=== PATIENT | female | born 1950 | race Caucasian/White ===

== ENCOUNTER 2018-03-02 06:16 | Day surgery (SDC) | payer OTHER ==
[2018-02-24 09:19] LABS: Urine Appearance CLEAR; Urine Bilirubin NEGATIVE (NEG); Urine Blood NEGATIVE (NEG); Urine Color YELLOW; Urine Glucose NEGATIVE (NEG); Urine Protein NEGATIVE (NEG); Urine Specific Gravity <=1.005 (1.005-1.030); Urine Urobilinogen 0.2 mg/dL (0.2-1.0); Urine pH 5.5 (5.0-7.0)
[2018-02-24 09:21] LABS: Urine Microscopic Reflex NO UMIC
[2018-02-24 09:46] LABS: Absolute Lymphocytes (CBC) 1.1 K/uL (0.7-4.9); Absolute Monocytes 0.3 K/uL (0.1-1.3); Absolute Neutrophil 1.8 K/uL (1.8-8.0); Basophils % 0.5 % (0-1.3); Eosinophils % 5.1 % (0-4.4); Hematocrit 43.1 % (36.0-45.0); Lymphocytes % 31.4 % (15.3-44.8); MPV 7.7 fL (7.6-11.3); Monocytes % 8.2 % (3.3-12.3)
[2018-03-02] MEDS ORDERED: Ringers Lactate 1,000 ML IV ONE ×2 (06:40→10:06)
[2018-03-02] MEDS ORDERED: CEFAZOLIN 1GM (PREMIX IV) 1 GM/50 ML BAG ONE (06:55)
[2018-03-02] MEDS ORDERED: NA CHLORIDE 0.9% 100 ML IV ONE (06:55)
[2018-03-02] MEDS ORDERED: PROPOFOL 200 MG/20 ML VIAL IV ONE (07:08)
[2018-03-02] MEDS ORDERED: ROCURONIUM 50 MG/5 ML VIAL IV ONE (07:09)
[2018-03-02] MEDS ORDERED: GLYCOPYRROLATE 0.2 MG/ML SYR ONE ×2 (07:09→07:10)
[2018-03-02] MEDS ORDERED: LIDOCAINE 2% MPF 5 ML VIAL ONE (07:10)
[2018-03-02] MEDS ORDERED: ONDANSETRON 4 MG/2 ML VIAL ONE ×2 (07:11→10:09)
[2018-03-02] MEDS ORDERED: FENTANYL CITR 250 MCG/5 ML ONE (07:11)
[2018-03-02] MEDS ORDERED: NEOSTIGMINE 1 MG/ML -5 ML SYRINGE ONE (07:11)
[2018-03-02] MEDS ORDERED: MIDAZOLAM HCL 2 MG/2 ML INJ ONE (07:11)
[2018-03-02] MEDS: CEFAZOLIN 1GM (PREMIX IV) 2 GM/100 ML BAG ONE ×2 (07:30→07:33)
[2018-03-02] MEDS ORDERED: EPHEDRINE SULF 50 MG/ML VIAL ONE (07:42)
[2018-03-02] MEDS: VASOPRESSIN 20 UNIT/ML VIAL ONE ×2 (08:00→08:17)
[2018-03-02] MEDS ORDERED: DEXAMETHASONE 10 MG/ML VIAL ONE (08:27)
[2018-03-02] MEDS: MEPERIDINE HCL 50 MG/ML AMP ONE ×8 (10:40→11:35)
[2018-03-02] MEDS: FENTANYL CITR 100 MCG/2 ML ONE ×2 (11:40→11:47)
[2018-03-02] MEDS ORDERED: Ringers Lactate 1,000 ML IV SCH (12:00)
[2018-03-02] MEDS ORDERED: MORPHINE 4 MG/ML SYR IV PRN (14:08)
[2018-03-02] MEDS ORDERED: ACETAMINOPHEN 325 MG TABLET PO PRN (14:09)
[2018-03-02] MEDS ORDERED: PROMETHAZINE 25 MG/ML VIAL IV PRN (14:13)
[2018-03-02] MEDS: MORPHINE 4 MG/ML SYR IV PRN ×2 (14:22→21:57)
[2018-03-02] MEDS ORDERED: INFLUENZA VACCINE (for 3y+) 0.5 ML DOSE IMVAC ONE (15:00)
[2018-03-02] MEDS: IBUPROFEN 200 MG TAB PO PRN (16:42)
[2018-03-02] MEDS: HYDROCODONE/APAP 5/325 MG TAB PO PRN (18:29)
[2018-03-03] MEDS: IBUPROFEN 200 MG TAB PO PRN ×2 (02:03→09:40)
[2018-03-03 04:54] LABS: Absolute Lymphocytes (CBC) 1.3 K/uL (0.7-4.9); Absolute Monocytes 0.5 K/uL (0.1-1.3); Absolute Neutrophil 7.3 K/uL (1.8-8.0); Basophils % 0.1 % (0-1.3); Hematocrit 32.9 % (36.0-45.0); Lymphocytes % 13.8 % (15.3-44.8); MPV 8.5 fL (7.6-11.3); Monocytes % 5.6 % (3.3-12.3); RBC Red Blood Cell Count 3.29 M/uL (3.86-4.86)
[2018-03-03] MEDS: HYDROCODONE/APAP 5/325 MG TAB PO PRN (09:40)
--- NOTE | 2018-03-07 02:53 | OP ---
Date of Procedure: 03/02/2018 Surgeon: Farzana Andrews MD Unified Communications Architect: No assistance. Preoperative Diagnosis: Stage II anterior wall prolapse with uterine prolapse. Postoperative Diagnosis: Stage II anterior wall prolapse with uterine prolapse. Procedures Performed: 1.Anterior repair (cystocele repair) with Xenform biologic graft augmentation. 2.Bilateral sacrospinous ligament fixation colpopexy. 3.Cystoscopy. Anesthesia: General. Ebl: Less than 100. Complications: No complications. Specimens: No specimens. Drains: Moseley catheter and vaginal packing. Findings: The patient's anterior wall descends with lateral paravaginal defect was prominent. Her p osterior repair was perfectly in place. Her apical suspension seemed to have sagged some with apex, 0.3 down to minus 3 and BP is the anterior most part down to 0 to +1. I was unable to place an Uphold graft anteriorly. This was also not done for the fact that the later al paravaginal defects were significant for this patient and without doing a paravaginal repair that she could have higher recurrence of prolapse due to the absence of a mesh augmented kit that could he lp address the paravaginal defects, decided to use the biologic Xenform graft despite this being a re current surgery after primary midline repair in the past, about 11 months ago. The patient was consented appropriately after discussing her defects. She was fully aware of all the options of abdominal repair of a supracervical hysterectomy, sacral colpopexy versus vaginal hystere ctomy or with uterine preservation anterior wall repair as well as repair of the apical defect again and resuspension. After the patient was consented appropriately for an Uphold repair versus biological Xenform repair, she was taken back to the OR. A 2 g of Ancef were given. She was placed in a dorsal lithotomy posit ion after general anesthesia was given. SCDs were started after a time-out was done. The patient wa s examined and POP-Q as above. Lower abdomen, vulva, vagina, and perineum were prepped and draped in a sterile fashion. Moseley was placed to drain the bladder and clamped with a Magda and retracted sup eriorly. The anterior wall was assessed and the Magda stitches caused scarring at the level of the urethrovesi fina junction. Starting immediately proximal to this, the anterior wall was grasped with the Allis cl amp to the level of the cervix. After the midline was injected with dilute vasopressin 20 units in 5 0 cc of normal saline, about 10 units was used in the lateral space on both sides. A midline incisio n was made with a 15 blade. Vaginal epithelium and sub-epithelium were incised. Then, the dissectio n was performed to reduce the bladder down it from the flap. This was done all the way to the lateral paravaginal sulcus. I did not go deeper to the fascial layer which, however, was scarre d because a plan was to place a biological graft. After the dissection was performed to both lateral sulci and paravesical spaces were entered, I had a difficult time dissecting the ischial spine and the sacrospinous ligament on the right side due to t he presence of the right sacrospinous stitch. However, the spine was palpable easily and the space w as cleaned up on the coccygeus muscle. Once the sacrospinous ligament was palpated, plan was to swee p the bowel medially and then create a space between the site of the sacrospinous stitch placement an d the mid part of the sacrospinous ligament. The lateral white line area was cleaned up as well ante riorly and laterally to the spine, then going on to the left side the ischial spine was identified. The white line was cleaned up, then the sacrospinous ligament was cleaned up after the coccygeus was identified. This was well exposed and well defined on the left side because the space was untouched. A Capio device was taken. Prolene sutures were used. First suture was placed on the left side in th e mid sacrospinous ligament on the anterior aspect of the ligament without going around it. The sutu re was tagged with a hemostat on the opposite side where an attempt was made, however, the placement was not satisfactory, so I placed the stitch just at the level of the scar on the sacrospinous ligame nt, medial to the ischial spine, may be about 1 cm under the sacrospinous ligament. This stitch was then held on the hemostats, then using PDS Capio sutures a suture was placed about 2-3 cm lateral and superior to the ischial spine on the white line with further correction of the paravaginal defect an d a similar stitch was placed on the opposite side as well. These sutures were tagged with straight hemostats and marked. Then, 3 sutures were placed after the bladder was dissected well off the cervi x. Sutures were taken through the tissue of the cervix in the midline and on both sides with 2-0 PDS sutures. Three sutures were taken and the graft was opened up. An 8 x 12 graft was cut such that t he [id number], [id number] length was 10 cm. It was cut to a trapezoid with the short side at 6 cm. The midline was marked, a space was created about 1 cm deep and 2 cm wide in the middle of the graft for the proximal end to accommodate the cervix. So, once the graft was fashioned in a trapezoi d fashion, we went ahead and placed the sacrospinous sutures through the graft. Then, the PDS suture s were placed on the graft as well in the areas that were marked. Then, the PDS sutures were placed on both sides, attached to the graft on both sides, where it was marked about 4 cm from the sacrospin ous stitch on the right and about 5 cm on the left to accommodate the higher placement of the sacrosp inous stitch. After removing the tissue clamps on the vaginal epithelium to avoid traction, the sacrospinous suture s were nicely tied up and tensioned appropriately. The PDS sutures were tied as well. There was exc ellent placement of the graft without any folds. This was holding up the apex appropriately. The ce rvix did not appear to be elongated. Once the graft was tied in the apical aspect, then the lateral PDS sutures were tied as well, then these were all tension-free. Distally, I attached the graft in t he midline with the help of 3-0 PDS and then 2 other 0 PDS sutures were used in the distal lateral as pect to secure the graft down. I contemplated a 6 point fixation, however, the urethrovesical juncti on was well suspended, so there was no need for this. Once the graft was attached to the distal part of the anterior wall, the inlay appeared to be optimal and the bladder was reduced appropriately wit h vaginal length still preserved. I excised about half a cm of the vaginal epithelium on each side t o trim, then the vaginal epithelium was closed with the interrupted suture at the apex and then ani nuous running horizontal mattress sutures to close the rest of the epithelium to the distal aspect. Cystoscopy was performed after the Moseley was removed. There were excellent streams of urine from bot h ureteric orifices. No evidence of any occlusion. No evidence of any trauma to the bladder either. A rectal exam was performed with no evidence of any trauma here. After thorough irrigation and suction were performed in the vaginal canal, the vaginal canal was pack ed up. There was excellent hemostasis. All instrument, needle, and sponge counts were done and were correct at the end of the case. The patient tolerated the procedure well. The Moseley was replaced. The patient was sent to the PACU in a stable condition. Again, the counts were correct at the end o f the case and EBL was less than 100. Urine output was 200. LOVE/MADY Voice ID: [id number] Report ID: [id number]
== END 2018-03-03 11:50 | disposition home or self-care (01) ==
LOC: OR 06:16 → 2ND-WC 11:05 → OR 03-03 11:50
PROVIDERS: ATTEND Obstetrics & Gynecology
PROC: 0USG7ZZ Reposition Vagina, Via Natural or Artificial Opening (ICD-10-PCS; 2018-03-02)
PROC: 0JUC0JZ Supplement of Pelvic Region Subcutaneous Tissue and Fascia with Synthetic Substitute, Open Approach (ICD-10-PCS; principal; 2018-03-02 07:00)
DX: N81.4 Uterovaginal prolapse, unspecified (principal); Z80.3 Family history of malignant neoplasm of breast
CPT/HCPCS: 36415 ×2; 57240; 57267; 57282; 81003; 85025 ×2; 85610; 85730; 86850; 86900; 86901; J0690 ×2; J1100; J2175 ×2; J2250; J2405 ×2; J2704; J2710; J3010 ×2

== ENCOUNTER 2019-06-25 16:45 | Emergency (ER) | payer OTHER ==
[2019-06-25] MEDS ORDERED: CEFTRIAXONE/SWI 1gm 1 GM/10 ML SYR ONE (17:44)
[2019-06-25] MEDS ORDERED: NA CHLORIDE 0.9% 1,000 ML ONE (17:44)
[2019-06-25 17:46] LABS: Urine Blood 2+ (NEG); Urine Glucose NEGATIVE (NEG); Urine Protein TRACE (NEG); Urine Specific Gravity 1.015 (1.005-1.030)
[2019-06-25 17:50] LABS: Absolute Lymphocytes (CBC) 1.5 K/uL (0.7-4.9); Basophils % 0.5 % (0-1.3); Hematocrit 42.5 % (36.0-45.0); Lymphocytes % 15.7 % (15.3-44.8); MPV 7.8 fL (7.6-11.3); RBC Red Blood Cell Count 4.21 M/uL (3.86-4.86)
[2019-06-25 18:04] LABS: Albumin 4.1 g/dL (3.4-5.0); Bilirubin Direct 0.2 mg/dL (0-0.2); Bilirubin Total 0.7 mg/dL (0.2-1.0); Potassium 3.7 mmol/L (3.5-5.1); Protein, Total 8.2 g/dL (6.4-8.2)
[2019-06-25] MEDS ORDERED: ACETAMINOPHEN 500 MG TAB ONE (18:41)
[2019-06-25 18:55] LABS: Urine Bacteria 20-50 /HPF (<20); Urine Culture Reflex Order NOT NEEDED
--- NOTE | 2019-06-25 19:07 | RAD REPORT ---
EXAM DESCRIPTION: CT - Abdomen Pelvis W Contrast - 06/25/2019 6:51 pm CLINICAL HISTORY: dysuria;Flank pain, low-grade fever COMPARISON: Abdomen Pelvis W Contrast dated 05/21/2017 TECHNIQUE: Biphasic, helical CT imaging of the abdomen and pelvis was performed following 100 ml non -ionic IV contrast. No oral contrast. All CT scans are performed using dose optimization technique as appropriate and may include automated exposure control or mA/KV adjustment according to patient size. FINDINGS: No suspicious findings in the lung bases. The liver, spleen, and pancreas show no suspicious findings. Gallbladder and biliary tree are also wi thout suspicious finding. Symmetric renal function is seen with no hydronephrosis or suspicious renal mass. No pyelonephritis o r acute parenchymal process. Ureters are not dilated but show a mild enhancement of the mercer. Urinar y bladder mercer are slightly shaggy and edematous. No bladder calculus or focal bladder mass. No adre nal gland abnormality. Numerous densely calcified uterine fibroids are present. Ovaries are atrophic. No primary ovarian process suspected. No dilated bowel loops or bowel wall thickening. Diverticulosis present without diverticulitis. No ac mulu GI process suspected. No free air, free fluid or pneumatosis. No mass or bulky lymphadenopathy. Fat only umbilical hernia present. Fat only inguinal hernias are present. No suspicious bony findings. IMPRESSION: Cystitis and bilateral ureteritis pattern. No pyelonephritis evident at this time.
--- NOTE | 2019-06-25 19:26 | ER ---
Nurse's Notes [facility] Name: Teodora Grossman Age: 68 yrs Sex: Female : 1950 Arrival Date: 06/25/2019 Time: 16:49 Bed 13 Private MD: Rg Cameron Diagnosis: Cystitis;Bilateral Ureteritis Presentation: 06/24 17:00 Chief complaint: Patient states: Dysuria since Wednesday. Low grade fever and low back ll1 pain. Took 4 doses of her sisters antibiotics and AZO. Coronavirus screen: Proceed with normal triage. Patient denies a cough. Patient denies shortness of breath or difficulty breathing. Patient denies measured and/or subjective temperature greater than 100.4F prior to today's visit. Patient denies travel on a cruise ship or to a country the [facility] currently lists as an affected area. Patient denies contact with known and/or suspected case of COVID-19. Ebola Screen: Patient denies travel to an Ebola-affected area in the 21 days before illness onset. Initial Sepsis Screen: Does the patient meet any 2 criteria? No. Patient's initial sepsis screen is negative. Does the patient have a suspected source of infection?. Risk Assessment: Do you want to hurt yourself or someone else? Patient reports no desire to harm self or others. Onset of symptoms was June 23, 2019. 17:00 Method Of Arrival: Ambulatory ll1 17:00 Acuity: KENRICK 3 ll1 Historical: - Allergies: 17:03 No Known Allergies; ll1 - PMHx: 17:03 Thyroid problem; ll1 - PSHx: 17:03 cyst removal right face; bladder surgery; ll1 - Immunization history:: Adult Immunizations up to date. - Social history:: Smoking status: Patient denies any tobacco usage or history of. Patient/guardian denies using alcohol, street drugs, tobacco products. Screenin:15 Abuse screen: Denies threats or abuse. Nutritional screening: No deficits noted. vc Tuberculosis screening: No symptoms or risk factors identified. Fall Risk None identified. Assessment: 17:15 General: Appears in no apparent distress. uncomfortable, Behavior is calm, cooperative, vc appropriate for age. Pain: Complains of pain in with urination. Neuro: Level of Consciousness is awake, alert, obeys commands, Oriented to person, place, time, situation, Appropriate for age. Cardiovascular: Patient's skin is warm and dry. Respiratory: Airway is patent Respiratory effort is even, unlabored, Respiratory pattern is regular, symmetrical. GI: No signs and/or symptoms were reported involving the gastrointestinal system. : Urine is cloudy, Reports burning with urination, pain. EENT: No signs and/or symptoms were reported regarding the EENT system. 18:15 Reassessment: Patient appears in no apparent distress at this time. Patient and/or vc family updated on plan of care and expected duration. Pain level reassessed. Patient is alert, oriented x 3, equal unlabored respirations, skin warm/dry/pink. 19:15 Reassessment: Patient appears in no apparent distress at this time. Patient and/or vc family updated on plan of care and expected duration. Pain level reassessed. Patient is alert, oriented x 3, equal unlabored respirations, skin warm/dry/pink. Patient states symptoms have not improved. Vital Signs: 17:00 BP 121 / 92; Pulse 85; Resp 17; Temp 99.5; Pulse Ox 99% ; Pain 7/10; ll1 18:00 BP 127 / 79; Pulse 98; Resp 17; Temp 100.3; Pulse Ox 98% on R/A; vc 19:35 Temp 98.9(O); vc 19:36 BP 132 / 78 LA (auto/reg); Pulse 77; Pulse Ox 98% on R/A; jp3 ED Course: 16:49 Patient arrived in ED. mr 16:49 Rg Cameron MD is Private Physician. mr 16:50 Chad Hinton [facility]. pm1 16:50 Rico Oleary MD is Attending Physician. pm1 17:02 Triage completed. ll1 17:03 Arm band placed on Patient placed in an exam room, on a stretcher. ll1 17:15 Patient has correct armband on for positive identification. Bed in low position. Call vc light in reach. Pulse ox on. NIBP on. 17:16 Jeanette Joy, BAR is Primary Nurse. vc 17:20 Inserted saline lock: 20 gauge in right forearm, using aseptic technique. Blood vc collected. 18:52 CT Abd/Pelvis - IV Contrast Only In Process Unspecified. EDMS 19:47 No provider procedures requiring assistance completed. IV discontinued, intact, vc bleeding controlled, No redness/swelling at site. Pressure dressing applied. Administered Medications: 17:42 Drug: NS 0.9% 1000 ml Route: IV; Rate: 1000 ml; Site: right forearm; vc 17:43 Drug: Rocephin 1 grams Route: IV; Rate: calculated rate; Site: right forearm; vc 18:38 Drug: Tylenol 1000 mg Route: PO; vc 19:00 Follow up: Response: No adverse reaction; Pain is decreased vc 19:40 Drug: morphine 4 mg Route: IVP; Site: right forearm; vc 19:45 Follow up: Response: No adverse reaction; Pain is decreased vc 19:40 Drug: Zofran (Ondansetron) 4 mg Route: IVP; Site: right forearm; vc 19:45 Follow up: Response: No adverse reaction; Pain is decreased vc Outcome: 19:25 Discharge ordered by MD. pm1 19:45 Discharged to home ambulatory. vc 19:45 Condition: good 19:45 Discharge instructions given to patient, Instructed on discharge instructions, follow up and referral plans. medication usage, Demonstrated understanding of instructions, follow-up care, medications, Prescriptions given X 2. 19:47 Patient left the ED. vc Signatures: Dispatcher [employer] EDAK Cheo Vee JamaalChad, D[employer] M[employer] OPERATOR DULL [employer]AT MILL OPERATOR pm1 Gilberto Sloan jp3 Jeanette Joy RN RN vc Taylor Powell RN RN ll1 Corrections: (The following items were deleted from the chart) 17:04 17:00 Chief complaint: Patient states: Dysuria since Wednesday. Low grade fever and low ll1 back pain. ll1 20:08 20:06 Patient left the ED. vc vc
--- NOTE | 2019-06-25 19:26 | EDPHYS ---
Physician Documentation [facility] Name: Teodora Grossman Age: 68 yrs Sex: Female : 1950 Arrival Date: 06/25/2019 Time: 16:49 Bed 13 Private MD: Rg Cameron ED Physician Rico Oleary HPI: 06/24 17:20 This 68 yrs old Female presents to ER via Ambulatory with complaints of pm1 Urinary Problem. 17:20 The patient complains of pain in the left low back. The pain does not radiate. Onset: pm1 The symptoms/episode began/occurred 2.5 day(s) ago. Modifying factors: The symptoms are alleviated by nothing. the symptoms are aggravated by nothing. Associated signs and symptoms: Pertinent positives: burning with urination, Pertinent negatives: diarrhea, fever, vomiting. Severity of pain: in the emergency department the pain is actually worse. The patient has not recently seen a physician. Patient with burning with urination for the past 2.5 days. Patient took 4 total pills of 1 tab Bactrim DS BID for 2 days and reports no improvement in her symptoms . Historical: - Allergies: 17:03 No Known Allergies; ll1 - PMHx: 17:03 Thyroid problem; ll1 - PSHx: 17:03 cyst removal right face; bladder surgery; ll1 - Immunization history:: Adult Immunizations up to date. - Social history:: Smoking status: Patient denies any tobacco usage or history of. Patient/guardian denies using alcohol, street drugs, tobacco products. ROS: 17:20 Constitutional: Negative for fever, chills, and weight loss, Cardiovascular: Negative pm1 for chest pain, palpitations, and edema, Respiratory: Negative for shortness of breath, cough, wheezing, and pleuritic chest pain, Abdomen/GI: Negative for abdominal pain, nausea, vomiting, diarrhea, and constipation. 17:20 MS/Extremity: Negative for injury and deformity, Skin: Negative for injury, rash, and discoloration. 17:20 Neuro: Negative for headache, weakness, numbness, tingling, and seizure. 17:20 Back: Positive for flank pain, bilaterally, Negative for radiated pain. 17:20 : Positive for flank pain, burning with urination. Exam: 17:20 Constitutional: This is a well developed, well nourished patient who is awake, alert, pm1 and in no acute distress. Head/Face: Normocephalic, atraumatic. Chest/axilla: Normal chest wall appearance and motion. Nontender with no deformity. No lesions are appreciated. 17:20 Skin: Warm, dry with normal turgor. Normal color with no rashes, no lesions, and no evidence of cellulitis. MS/ Extremity: Pulses equal, no cyanosis. Neurovascular intact. Full, normal range of motion. 17:20 Cardiovascular: Exam negative for acute changes, Rate: normal, Rhythm: regular, Pulses: no pulse deficits are appreciated, Edema: is not appreciated. 17:20 Respiratory: Exam negative for acute changes, respiratory distress, shortness of breath, wheezing. 17:20 Abdomen/GI: Inspection: abdomen appears normal, Palpation: abdomen is soft and non-tender, in all quadrants, mass, is not appreciated, rebound tenderness, is not appreciated. 17:20 Back: pain, that is mild, of the left low back, normal spinal alignment noted, vertebral tenderness, is not appreciated. 17:20 Neuro: Exam negative for acute changes, Orientation: is normal, Motor: is normal, moves all fours. Vital Signs: 17:00 BP 121 / 92; Pulse 85; Resp 17; Temp 99.5; Pulse Ox 99% ; Pain 7/10; ll1 18:00 BP 127 / 79; Pulse 98; Resp 17; Temp 100.3; Pulse Ox 98% on R/A; vc 19:35 Temp 98.9(O); vc 19:36 BP 132 / 78 LA (auto/reg); Pulse 77; Pulse Ox 98% on R/A; jp3 MDM: 16:55 Patient medically screened. pm1 19:22 Data reviewed: vital signs. Data interpreted: Pulse oximetry: on room air is 98 %. pm1 Interpretation: normal. Counseling: I had a detailed discussion with the patient and/or guardian regarding: the historical points, exam findings, and any diagnostic results supporting the discharge/admit diagnosis, lab results, radiology results, the need for outpatient follow up, to return to the emergency department if symptoms worsen or persist or if there are any questions or concerns that arise at home. 19:34 ED course: DRILL [employer]EM[employer] aware reviewed. pm1 19:35 ED course: Patient without improvement with Bactrim for two days. Will cover patient pm1 with Augmentin after giving patient Rocephin in the ER. 06/24 17:20 Order name: Basic Metabolic Panel; Complete Time: 18:25 pm1 06/24 17:20 Order name: CBC with Diff; Complete Time: 17:58 pm1 06/24 17:20 Order name: Creatinine for Radiology; Complete Time: 18:25 pm1 06/24 17:20 Order name: Hepatic Function; Complete Time: 18:25 pm1 06/24 17:20 Order name: Lipase; Complete Time: 18:25 pm1 06/24 17:20 Order name: Urine Microscopic Only; Complete Time: 19:18 pm1 06/24 17:20 Order name: Urine Culture pm1 06/24 17:22 Order name: Urine Dipstick--Ancillary (enter results); Complete Time: 17:47 bd 06/24 18:32 Order name: CT Abd/Pelvis - IV Contrast Only; Complete Time: 19:18 pm1 06/24 17:20 Order name: IV Saline Lock; Complete Time: 17:37 pm1 06/24 17:20 Order name: Labs collected and sent; Complete Time: 17:37 pm1 06/24 17:20 Order name: Urine Dipstick-Ancillary (obtain specimen); Complete Time: 17:37 pm1 Administered Medications: 17:42 Drug: NS 0.9% 1000 ml Route: IV; Rate: 1000 ml; Site: right forearm; vc 17:43 Drug: Rocephin 1 grams Route: IV; Rate: calculated rate; Site: right forearm; vc 18:38 Drug: Tylenol 1000 mg Route: PO; vc 19:00 Follow up: Response: No adverse reaction; Pain is decreased vc 19:40 Drug: morphine 4 mg Route: IVP; Site: right forearm; vc 19:45 Follow up: Response: No adverse reaction; Pain is decreased vc 19:40 Drug: Zofran (Ondansetron) 4 mg Route: IVP; Site: right forearm; vc 19:45 Follow up: Response: No adverse reaction; Pain is decreased vc Disposition: 06/25 10:07 Co-signature as Attending Physician, Rico MORALES I agree with the assessment and klaus plan of care. Disposition: 06/25/19 19:25 Discharged to Home. Impression: Cystitis, Bilateral Ureteritis. - Condition is Stable. - Discharge Instructions: Urinary Tract Infection, Adult. - Prescriptions for Augmentin 875- 125 mg Oral Tablet - take 1 tablet by ORAL route every 12 hours for 10 days; 20 tablet. Tramadol 50 mg Oral Tablet - take 1 tablet by ORAL route every 8 hours as needed; 12 tablet. - Medication Reconciliation Form, Thank You Letter, Antibiotic Education, Prescription Opioid Use form. - Follow up: Emergency Department; When: As needed; Reason: Worsening of condition. Follow up: Private Physician; When: 2 - 3 days; Reason: Recheck today's complaints, Continuance of care, Re-evaluation by your physician. - Problem is new. - Symptoms have improved. Signatures: Dispatcher [employer] EDMS Rico Oleary MD MD cha Marinas, Patrick, NP [employer] pm1 Jeanette Joy RN RN vc Taylor Powell RN RN ll1 Corrections: (The following items were deleted from the chart) 06/24 20:06 19:25 06/25/2019 19:25 Discharged to Home. Impression: Cystitis; Bilateral Ureteritis. vc Condition is Stable. Forms are Medication Reconciliation Form, Thank You Letter, Antibiotic Education, Prescription Opioid Use. Follow up: Emergency Department; When: As needed; Reason: Worsening of condition. Follow up: Private Physician; When: 2 - 3 days; Reason: Recheck today's complaints, Continuance of care, Re-evaluation by your physician. Problem is new. Symptoms have improved. pm1
[2019-06-25] MEDS ORDERED: MORPHINE 4 MG/ML SYR ONE (19:41)
[2019-06-25] MEDS ORDERED: ONDANSETRON 4 MG/2 ML VIAL ONE (19:41)
[2019-06-25 20:24] VITALS: TEMP 100.3; O2SAT 98
[2019-06-25 20:26] VITALS: BP 132/78
== END 2019-06-25 20:06 | disposition home or self-care (01) ==
LOC: ER 16:45
DX: N30.90 Cystitis, unspecified without hematuria (principal); N28.89 Other specified disorders of kidney and ureter
CPT/HCPCS: 87088; 85025; 87086; 80048; 36415; 80076; 83690; 74177; Q9967; J0696; J7030; J2405; 81003; 81015; 96374; 96375; 99284